=== PATIENT | female | born 1970 | race Two or more races ===

== ENCOUNTER 2019-01-07 07:03 | Emergency (ER) | payer OTHER | END 2019-01-07 09:35 | disposition other institution (70) | LOC: ED 07:03 | DX: Z02.89 Encounter for other administrative examinations (principal) ==

== ENCOUNTER 2019-01-07 07:03 | Emergency (ER) | payer SELFPAY ==
[~2019-01-07] VITALS: Ht 152.4 cm; Wt 70.3 kg
[2019-01-07 07:06] VITALS: Ht 152.4 cm; Wt 70.3 kg
[2019-01-07 08:52] LABS: BASOPHIL % 0.3 % (0-2); PLATELET COUNT 291 x10^3mcL (130-400)
[2019-01-07 08:58] LABS: CALCIUM 9.1 mg/dL (8.5-10.1); CARBON DIOXIDE 27.7 mmol/L (21-32); CHLORIDE SERUM 103 mmol/L (98-107); CREATININE SERUM 0.7 mg/dL (0.6-1.0); GFR1 > 60 mL/min; GLUCOSE SERUM 356 mg/dL (74-106); POTASSIUM SERUM 4.4 mmol/L (3.5-5.1); SODIUM SERUM 141 mmol/L (136-145)
[2019-01-07 09:03] LABS: ALBUMIN 3.7 g/dL (3.4-5.0); ALKALINE PHOSPHATASE 104 U/L (46-116); ALT/SGPT 68 U/L (14-59); AST/SGOT 30 U/L (15-37); BILIRUBIN TOTAL 0.26 mg/dL (0.20-1.00)
[2019-01-07 09:04] LABS: TOTAL PROTEIN, SERUM 8.3 g/dL (6.4-8.2)
[2019-01-07 09:07] LABS: RED CELL DISTRIBUTION WIDTH 14.8 % (11.5-14.5)
[2019-01-07 09:35] VITALS: BP 138/913
== END 2019-01-07 09:35 | disposition other institution (70) ==
LOC: ED 07:03
PROVIDERS: Emergency Medicine
DX: E11.65 Type 2 diabetes mellitus with hyperglycemia (principal); R10.30 Lower abdominal pain, unspecified
CPT/HCPCS: 36415; 82962; J7030